=== PATIENT | female | born 1995 | race Caucasian/White ===

== ENCOUNTER 2017-04-14 08:01 | Observation (INO) | payer OTHER ==
--- NOTE | 2017-04-14 08:37 | ED PDOC ---
Upper Extremity Pain/Injury Time Seen by Provider: 04/14/17 08:12 Chief Complaint (Nursing): Upper Extremity Problem/Injury Additional Complaint(s): Patient is a 21 y/o F presenting with R arm swelling that began 2 days ago. She denies any trauma but reports that she works out lifting weights regularly. She reports some pain to the R clavicle, but is refusing pain medication. She denies weakness or numbness. Denies decreased ROM. She reports that she has been using a sling and elevating her arm without relief. PMD: Hx of R shoulder dislocation 5 years ago Past Medical History Vital Signs: Last Vital Signs Temp 98.5 F 04/14/17 08:07 Pulse 88 04/14/17 08:07 Resp 18 04/14/17 08:07 BP 113/54 L 04/14/17 08:07 Pulse Ox 98 04/14/17 08:11 - Medical History PMH: Gastritis - Family History Family History: States: Unknown Family Hx - Home Medications Home Medications: Ambulatory Orders Medication Instructions Recorded No Known Home Med 04/14/17 - Allergies Allergies/Adverse Reactions: Allergies Allergy/AdvReac Type Severity Reaction Status Date / Time No Known Allergies Allergy Verified 04/14/17 08:10 Review of Systems Constitutional: Negative for: Fever, Chills Cardiovascular: Negative for: Chest Pain, Palpitations Respiratory: Negative for: Cough, Shortness of Breath, SOB with Exertion, Wheezing Gastrointestinal: Negative for: Nausea, Vomiting, Abdominal Pain, Diarrhea, Constipation Genitourinary Female: Negative for: Dysuria Musculoskeletal: Positive for: Shoulder Pain, Arm Pain Skin: Negative for: Rash Neurological: Negative for: Weakness, Numbness, Altered Mental Status, Headache Physical Exam - Reviewed Nursing Documentation Reviewed: Yes Vital Signs Reviewed: Yes - Physical Exam Appears: Positive for: Well, Non-toxic Head Exam: Positive for: ATRAUMATIC, NORMAL INSPECTION Skin: Negative for: Normal Color (dependent edema and redness to R arm when allowed to hang) Eye Exam: Positive for: EOMI, Normal appearance, PERRL Neck: Positive for: Normal, Painless ROM Cardiovascular/Chest: Positive for: Regular Rate, Rhythm Respiratory: Positive for: Normal Breath Sounds. Negative for: Crackles, Rales , Rhonchi, Stridor, Wheezing Pulses-Radial (L): 2+ Pulses-Radial (R): 2+ Gastrointestinal/Abdominal: Positive for: Soft. Negative for: Tenderness, Mass , Distended Back: Positive for: Normal Inspection Extremity: Positive for: Normal ROM, Tenderness (pinpoint tenderness to R distal clavicle), Other (swelling to R upper and lower arm. Compartment soft. Distal pulses intact. ). Negative for: Deformity Neurologic/Psych: Positive for: Alert, organizational research consultant II-XII, Gait - Laboratory Results Result Diagrams: 04/14/17 08:46 04/14/17 08:46 - ECG O2 Sat by Pulse Oximetry: 98 Medical Decision Making Medical Decision Making: Will get duplex to r/o DVT. Will get xray of R shoulder and clavicle to r/o fracture or dislocation. Will give IVF and gets labs to r/o rhabdo. 10:24AM Labs WNL. U/s shows blood clot in proximal and mid R subclavian vein. Lovenox ordered. (Coags WNL) Spoke to radiologist and shoulder xray and clavicle xray negative for mass in chest (reports able to view entire chest and does not need dedicated film) Patient's PMD does not come to [place], so spoke to med contact center agent. Dr. Moreira. He is requesting CTA and admission to tele. 12:51PM CTA negative for PE. Patient resting comfortably Disposition - Clinical Impression Clinical Impression: DVT (deep venous thrombosis) - Disposition Disposition Time: 10:37 Condition: FAIR - Pt Status Changed To: Hospital Disposition Of: Inpatient - Admit Certification Admit to Inpatient:: After my assessment, the patient will require hospitalization for at least two midnights. This is because of the severity of symptoms shown, intensity of services needed, and/or the medical risk in this patient being treated as an outpatient.
[2017-04-14] MEDS: Sodium Chloride 0.9% 1,000 ML IV SCH ×3 (08:48→19:08)
[2017-04-14 08:55] LABS: BASO % 0.8 % (0.0-2.0); EOS # 0.1 K/uL (0.0-0.7); EOS % 2.9 % (0.0-4.0); HEMOGLOBIN 12.4 g/dL (12.0-16.0); LYMPH # 1.3 K/uL (1.0-4.3); LYMPH % 30.2 % (20.0-40.0); MEAN CELL VOLUME 91.2 fl (81.0-99.0); MEAN CORPUSCULAR HEMOGLOBIN 30.9 pg (27.0-31.0); MEAN CORPUSCULAR HGB CONC 33.8 g/dL (33.0-37.0); MEAN PLATELET VOLUME 7.3 fl (7.2-11.7); MONO # 0.5 K/uL (0.0-0.8); MONO % 12.1 % (0.0-10.0); NEUT # 2.4 K/uL (1.8-7.0); WHITE BLOOD COUNT 4.4 K/uL (4.8-10.8)
[2017-04-14 09:04] LABS: ALB/GLOB RATIO 1.6 (1.0-2.1); ALBUMIN 4.3 g/dL (3.5-5.0); ALT/SGPT 40 U/L (9-52); AST/SGOT 37 U/L (14-36); BLOOD UREA NITROGEN 9 mg/dl (7-17); GFR AFRICAN-AMERICAN > 60; GFR NON-AFRICAN AMERICAN > 60
--- NOTE | 2017-04-14 10:24 | US ---
PROCEDURE: Right Upper Extremity Venous Doppler HISTORY: R arm swelling COMPARISON: None available. TECHNIQUE: Right upper extremity deep veins, including the lower internal jugular, subclavian, axillary and brachial veins, were evaluated flow, compressibility and respiratory phasicity. FINDINGS: There is normal flow demonstrated in the internal jugular vein with compressibility. No intraluminal thrombus is noted. The right subclavian vein demonstrates absent flow in the proximal and mid aspect, with noncompressibility. There is flow seen in the distal aspect thigh in vein but it is still not compressible suggesting that there is still intraluminal thrombus. Examination of the axillary vein demonstrates no intraluminal thrombus. Normal compressibility is demonstrated. Normal respiratory variation and augmentation is demonstrated. Right brachials vein demonstrates no intraluminal thrombus. Normal compressibility is demonstrated. Normal respiratory variation and augmentation is demonstrated. IMPRESSION: There is deep venous thrombosis in the right subclavian vein. There is no deep venous thrombosis in any of the other right upper extremity deep veins. This finding was discussed by telephone with Dr. Cabral at 10:21 a.m. on 04/14/2017
[2017-04-14] MEDS ORDERED: Enoxaparin 80 mg Syringe SC STA (10:30)
[2017-04-14 11:20] LABS: PARTIAL THROMBOPLASTIN TIME 30.8 Seconds (25.6-37.1); PROTHROMBIN TIME 11.7 Seconds (9.8-13.1)
[2017-04-14] MEDS ORDERED: Iodixanol 320 MG/ML 100 ML BOTTLE IV ONE (11:24)
[2017-04-14] MEDS ORDERED: Sodium Chloride 0.9% 50 ML IV ONE (11:24)
--- NOTE | 2017-04-14 12:17 | RAD ---
PROCEDURE: Radiographs of the Right Shoulder HISTORY: R clavicle/shoulder pain after exercising COMPARISON: No prior. FINDINGS: BONES: Normal. No fracture. JOINTS: Normal. Glenohumeral and acromioclavicular joints preserved. No osteoarthritis. SOFT TISSUES: Normal. OTHER FINDINGS: None. IMPRESSION: Normal radiographs of the right shoulder.
--- NOTE | 2017-04-14 12:17 | RAD ---
PROCEDURE: Radiographs of the right clavicle. HISTORY: R clavicle/shoulder pain after exercising COMPARISON: None. FINDINGS: RIGHT CLAVICLE: No fracture or focal lesion. JOINTS: Right acromioclavicular and glenohumeral joints are grossly unremarkable. SOFT TISSUES: Grossly unremarkable. OTHER FINDINGS: None. IMPRESSION: Normal radiographs of the right clavicle.
--- NOTE | 2017-04-14 12:34 | CT ---
PROCEDURE: CT Chest with contrast (Pulmonary Angiogram) HISTORY: dvt, eval for PE COMPARISON: None available. TECHNIQUE: Axial computed tomography images were obtained of the chest in the pulmonary arterial phase of enhancement. Coronal and sagittal reformatted images were created and reviewed. Intravenous contrast dose: 99 cc Visipaque 320 Radiation dose: Total exam DLP = 322.89 mGy-cm. This CT exam was performed using one or more of the following dose reduction techniques: Automated exposure control, adjustment of the mA and/or kV according to patient size, and/or use of iterative reconstruction technique. FINDINGS: PULMONARY ARTERIES: Unremarkable. No pulmonary embolism. AORTA: No acute findings. No thoracic aortic aneurysm. LUNGS: Unremarkable. No nodule, mass or pulmonary consolidation. PLEURAL SPACES: Unremarkable. No effusion or pneuomothorax. HEART: Unremarkable. No cardiomegaly. No significant pericardial effusion. LYMPH NODES: No lymphadenopathy. BONES, CHEST WALL: Unremarkable. No fracture or destructive lesion OTHER FINDINGS: Unremarkable. IMPRESSION: Unremarkable CT pulmonary angiogram. No pulmonary embolus.
--- NOTE | 2017-04-14 15:22 | CARD ---
APPROVED REPORT EKG Measurement Heart [id number] <Conclusion> Normal sinus rhythm Normal ECG
[2017-04-14] MEDS ORDERED: DiphenhydrAMINE 12.5 mg/5 ml LIQ UD (5 ml) ONE (18:02)
--- NOTE | 2017-04-14 18:46 | CP.PCM.CON ---
History of Present Illness - History of Present Illness History of Present Illness: 21 year old female admitted with right subclavian vein DVT. The patient reports to swelling involving her right arm for about 2 days. This concerned her and she came to the ER. An ultrasound revealed right subclavian vein thrombus and she was started on therapeutic Lovenox. She denies immobility and notes she works out in the gym with weights. She denies trauma to the area but notes to a right clavical injury about 5 years ago which required a sling. She denies chest pain and shortness of breath. She was due to start control pills recently but denies taking them or other hormonal therapies. She denies family members with blood clots or sudden . Past medical history: None Past surgical history: None Family history: Denies hematologic and oncologic problems. Social history: Denies tobacco, drinks alcohol socially, denies illicit drug use. Allergies: NKA Review of systems: All remaining review of systems including HEENT, cardiovascular, respiratory, gastrointestinal, genitourinary, musculoskeletal, dermatologic, neurologic, and psychiatric are negative unless mentioned in the HPI. Past Patient History - Past Social History Smoking Status: Never Smoked - CARDIAC Hx Cardiac Disorders: No - PULMONARY Hx Respiratory Disorders: No - NEUROLOGICAL Hx Neurological Disorder: No - HEENT Hx HEENT Problems: No - RENAL Hx Chronic Kidney Disease: No - ENDOCRINE/METABOLIC Hx Endocrine Disorders: No - HEMATOLOGICAL/ONCOLOGICAL Hx Blood Disorders: No - INTEGUMENTARY Hx Dermatological Problems: No - MUSCULOSKELETAL/RHEUMATOLOGICAL Hx Musculoskeletal Disorders: No - GASTROINTESTINAL Hx Gastritis: Yes - GENITOURINARY/GYNECOLOGICAL Hx Genitourinary Disorders: No - PSYCHIATRIC Hx Psychophysiologic Disorder: No - SURGICAL HISTORY Hx Surgeries: No - ANESTHESIA Hx Anesthesia: No Meds Allergies/Adverse Reactions: Allergies Allergy/AdvReac Type Severity Reaction Status Date / Time No Known Allergies Allergy Verified 04/14/17 08:10 - Medications Medications: Current Medications Enoxaparin Sodium (Lovenox) 60 mg SC Q12 FARHAN PRN Reason: Protocol Sodium Chloride (Sodium Chloride 0.9%) 1,000 mls @ 80 mls/hr IV .[id number] Stop: 04/15/17 18:27 Physical Exam - Head Exam Head Exam: ATRAUMATIC - Eye Exam Eye Exam: Normal appearance - ENT Exam ENT Exam: Mucous Membranes Dry - Respiratory Exam Respiratory Exam: NORMAL BREATHING PATTERN - Cardiovascular Exam Cardiovascular Exam: +S1, +S2 - GI/Abdominal Exam GI & Abdominal Exam: Normal Bowel Sounds - Extremities Exam Additional comments: right forearm swelling - Neurological Exam Neurological exam: Oriented x3 - Psychiatric Exam Psychiatric exam: Normal Affect, Normal Mood - Skin Skin Exam: Warm Results - Vital Signs Recent Vital Signs: Last Vital Signs Temp 98.2 F 04/14/17 17:22 Pulse 74 04/14/17 17:22 Resp 20 04/14/17 17:22 BP 123/76 04/14/17 17:22 Pulse Ox 97 04/14/17 16:30 - Labs Result Diagrams: 04/15/17 06:30 04/15/17 06:30 Assessment & Plan (1) DVT (deep venous thrombosis) Assessment and Plan: 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 The patient prefers outpatient Pradaxa (150mg BID). Status: Acute (2) Leukopenia Assessment and Plan: mild benign Thank you for this interesting consult. Status: Acute
[2017-04-14 19:09] VITALS: O2SAT 99
[2017-04-14] MEDS: Enoxaparin 60 mg Syringe SC SCH (21:33)
[2017-04-15 07:10] LABS: HEMOGLOBIN 12.3 g/dL (12.0-16.0); MEAN CELL VOLUME 91.5 fl (81.0-99.0); MEAN CORPUSCULAR HEMOGLOBIN 30.5 pg (27.0-31.0); MEAN CORPUSCULAR HGB CONC 33.3 g/dL (33.0-37.0); RBC 4.05 Mil/uL (3.80-5.20); RED CELL DISTRIBUTION WIDTH 12.8 % (11.5-14.5); WHITE BLOOD COUNT 4.6 K/uL (4.8-10.8)
[2017-04-15 07:33] LABS: PARTIAL THROMBOPLASTIN TIME 30.3 Seconds (25.6-37.1); PROTHROMBIN TIME 11.2 Seconds (9.8-13.1)
[2017-04-15 07:47] LABS: BLOOD UREA NITROGEN 8 mg/dl (7-17); CALCIUM 8.7 mg/dL (8.4-10.2); GFR AFRICAN-AMERICAN > 60; GFR NON-AFRICAN AMERICAN > 60
[2017-04-15] MEDS: Sodium Chloride 0.9% 1,000 ML IV SCH (09:15)
[2017-04-15] MEDS: Enoxaparin 60 mg Syringe SC SCH (09:15)
--- NOTE | 2017-04-15 12:27 | CP.PCM.HP ---
History of Present Illness - History of Present Illness History of Present Illness: CC: R arm / R shoulder pain 21 y/o F, came to [facility], [place] to be evaluated for R arm pain,constant, aching , mild intensity 3:10 associated to swelling upper and lower arm for 2 days [facility] RN , Pt refused pain medication and still with no relief on arrival to ED. Pain radiated to R clavicle. Worsening symptoms: Hx of R shoulder dislocation 5 yrs ago, using splint. Aggravated factor: Movements/exercises, bending, twisting, lifting weights, unable to work out. Pt denied: Fever, chills, numbness, weakness, SOB, CP, palpitations, n/v/d, abdominal pain, sick contact. PMHx: R shoulder dislocation 5 yrs ago. EKG: Normal sinus rhythm. CXR: Normal. X Ray Clavicle: Normal. Upper Ext. U-S: DVT R Subclavian Veins. Lowe Ext. U-S: No DVT Present on Admission - Present on Admission Any Indicators Present on Admission: Yes History of DVT/PE: Yes Review of Systems - Constitutional Constitutional: Other (negative) - EENT Eyes: Other (negative) Ears: Other (negative) Nose/Mouth/Throat: Other (negative) - Cardiovascular Cardiovascular: Other (negative) - Respiratory Respiratory: Other (negative) - Gastrointestinal Gastrointestinal: Other (negative) - Genitourinary Genitourinary: Other (negative) - Musculoskeletal Musculoskeletal: Joint Swelling, Radiating Pain into Limb, Other - Integumentary Integumentary: Swelling (R arm) - Neurological Neurological: Other (negative) - Psychiatric Psychiatric: Other (negative) - Endocrine Endocrine: Other (negative) - Hematologic/Lymphatic Hematologic: Other (negative) Past Patient History - Past Social History Smoking Status: Never Smoked - CARDIAC Hx Cardiac Disorders: No - PULMONARY Hx Respiratory Disorders: No - NEUROLOGICAL Hx Neurological Disorder: No - HEENT Hx HEENT Problems: No - RENAL Hx Chronic Kidney Disease: No - ENDOCRINE/METABOLIC Hx Endocrine Disorders: No - HEMATOLOGICAL/ONCOLOGICAL Hx Blood Disorders: No - INTEGUMENTARY Hx Dermatological Problems: No - MUSCULOSKELETAL/RHEUMATOLOGICAL Hx Musculoskeletal Disorders: No - GASTROINTESTINAL Hx Gastritis: Yes - GENITOURINARY/GYNECOLOGICAL Hx Genitourinary Disorders: No - PSYCHIATRIC Hx Psychophysiologic Disorder: No - SURGICAL HISTORY Hx Surgeries: No - ANESTHESIA Hx Anesthesia: No Meds Home Medications: Home Medication List Medication Instructions Recorded Confirmed Type Dabigatran [Pradaxa] 75 mg PO BID #60 cap 04/15/17 Rx Allergies/Adverse Reactions: Allergies Allergy/AdvReac Type Severity Reaction Status Date / Time No Known Allergies Allergy Verified 04/14/17 08:10 Physical Exam - Constitutional Appears: No Acute Distress - Head Exam Head Exam: NORMAL INSPECTION - Eye Exam Eye Exam: PERRL - ENT Exam ENT Exam: Normal Oropharynx - Neck Exam Neck exam: Positive for: Normal Inspection - Respiratory Exam Respiratory Exam: NORMAL BREATHING PATTERN - Cardiovascular Exam Cardiovascular Exam: REGULAR RHYTHM - GI/Abdominal Exam GI & Abdominal Exam: Normal Bowel Sounds, Soft - Extremities Exam Extremities exam: Positive for: tenderness (R distal clavicle.) Additional comments: Swelling R arm - Back Exam Back exam: NORMAL INSPECTION - Neurological Exam Neurological exam: Alert, Oriented x3 Additional comments: No motor sensory deficit. - Psychiatric Exam Psychiatric exam: Normal Mood - Skin Skin Exam: Warm Results - Vital Signs Recent Vital Signs: Last Vital Signs Temp 98.1 F 04/15/17 12:00 Pulse 73 04/15/17 12:00 Resp 18 04/15/17 12:00 BP 108/75 04/15/17 12:00 Pulse Ox 99 04/15/17 12:00 reviewed J.P. - Labs Result Diagrams: 04/15/17 06:30 04/15/17 06:30 Labs: Laboratory Results - last 24 hr 04/15/17 04/15/17 04/15/17 06:30 06:30 06:30 WBC 4.6 L RBC 4.05 Hgb 12.3 Hct 37.0 MCV 91.5 MCH 30.5 MCHC 33.3 RDW 12.8 Plt Count 212 PT 11.2 INR 1.0 APTT 30.3 Sodium 139 Potassium 4.2 Chloride 108 H Carbon Dioxide 24 Anion Gap 11 BUN 8 Creatinine 0.6 L Est GFR ( Amer) > 60 Est GFR (Non-Af Amer) > 60 Random Glucose 89 Calcium 8.7 reviewed J.P. - EKG Data EKG comments: reviewed J.P. - Imaging and Cardiology Chest x-ray Status: Report reviewed by me (Gordo) Venous US Status: Report reviewed by me (Gordo) Assessment & Plan (1) Suspected deep vein thrombosis (DVT) Status: Acute Priority: High Comment: R Subclavian Vein - Assessment and Plan (Free Text) Plan: Pt was seen by Hematology outside solar sales consultant, recommended to be on light duty work, Pt improved and stable to be discharged, to continue with Pradaxa as out PT, as per Dermatology outside solar sales consultant recommendation and to follow up in his office in 2 weeks, also to f/u with PMD in a week. - Date & Time Date: 04/15/17
--- NOTE | 2017-04-15 13:31 | CP.PCM.PN ---
Subjective - Date & Time of Evaluation Date of Evaluation: 04/15/17 Time of Evaluation: 12:00 - Subjective Subjective: Arm swelling improved Objective - Vital Signs/Intake and Output Vital Signs (last 24 hours): Temp Pulse Resp BP Pulse Ox 98.1 F 73 18 108/75 99 04/15/17 12:00 04/15/17 12:00 04/15/17 12:00 04/15/17 12:00 04/15/17 12:00 - Medications Medications: Current Medications Acetaminophen (Tylenol 325mg Tab) 650 mg PO Q4 PRN PRN Reason: Pain, moderate (4-7) Last Admin: 04/14/17 23:27 Dose: 650 mg Dabigatran (Pradaxa) 75 mg PO BID FARHAN PRN Reason: Protocol Enoxaparin Sodium (Lovenox) 60 mg SC Q12 FARHAN PRN Reason: Protocol Last Admin: 04/15/17 09:15 Dose: 60 mg Sodium Chloride (Sodium Chloride 0.9%) 1,000 mls @ 80 mls/hr IV .[id number] [facility] Stop: 04/15/17 18:27 Last Admin: 04/15/17 09:15 Dose: 80 mls/hr - Labs Labs: 04/15/17 06:30 04/15/17 06:30 PT 11.2 Seconds (9.8-13.1) 04/15/17 06:30 INR 1.0 (0.9-1.2) 04/15/17 06:30 APTT 30.3 Seconds (25.6-37.1) 04/15/17 06:30 - Head Exam Head Exam: ATRAUMATIC - Eye Exam Eye Exam: Normal appearance - ENT Exam ENT Exam: Mucous Membranes Dry - Respiratory Exam Respiratory Exam: NORMAL BREATHING PATTERN - Cardiovascular Exam Cardiovascular Exam: +S1, +S2 - GI/Abdominal Exam GI & Abdominal Exam: Normal Bowel Sounds Assessment and Plan (1) DVT (deep venous thrombosis) Assessment & Plan: unprovoked inherited thrombophilia w/u sent on therapeutic anticoagulation outpatient Pradaxa 150mg BID x 3 months Status: Acute (2) Leukopenia Status: Acute
[2017-04-15 15:37] VITALS: BP 103/68; PULSE 77; RESP 20; TEMP 98.2
--- NOTE | 2017-04-15 15:49 | US ---
PROCEDURE: Bilateral lower extremity venous duplex Doppler. HISTORY: r/o dvt COMPARISON: None available. TECHNIQUE: Bilateral common femoral, superficial femoral, popliteal and posterior tibial veins were evaluated. Flow was assessed with color Doppler, compressibility, assessment of phasic flow and augmentation response. FINDINGS: COMMON FEMORAL VEIN: Right CFV: Unremarkable. Left CFV: Unremarkable. SUPERFICIAL FEMORAL VEIN: Right SFV: Unremarkable. Left SFV: Unremarkable. POPLITEAL VEIN: Right Popliteal: Unremarkable. Left Popliteal: Unremarkable. POSTERIOR TIBIAL VEIN: Right PTV: Unremarkable. Left PTV: Unremarkable. OTHER FINDINGS: None. IMPRESSION: No evidence of deep venous thrombosis.
[2017-04-18 05:06] LABS: B2 GLYCOPROTEIN I AB(IGA) <9 SAU (<=20); B2 GLYCOPROTEIN I AB(IGG) <9 SGU (<=20); B2 GLYCOPROTEIN I AB(IGM) <9 SMU (<=20)
[2017-04-18 05:48] LABS: CARDIOLIPIN AB (IGA) <11 APL (<=11); CARDIOLIPIN AB (IGG) <14 GPL (<=14); CARDIOLIPIN AB (IGM) <12 MPL (<=12); PHOSPHATIDYLSERINE AB IGA <20 U/mL (<20); PHOSPHATIDYLSERINE AB IGG <10 U/mL (<10); PHOSPHATIDYLSERINE AB IGM <25 U/mL (<25)
== END 2017-04-15 17:15 | disposition home or self-care (01) ==
LOC: H.ER 08:01 → H.ERHOLD 10:41 → INTOOBSV 10:41 → H.TEL 16:29
PROVIDERS: ADMIT Internal Medicine Pulmonary Disease; ATTEND Internal Medicine Pulmonary Disease
DX: I82.B11 Acute embolism and thrombosis of right subclavian vein (principal); D72.819 Decreased white blood cell count, unspecified; Z79.01 Long term (current) use of anticoagulants; Z86.718 Personal history of other venous thrombosis and embolism

== ENCOUNTER 2018-02-10 15:11 | Observation (INO) | payer OTHER ==
[2018-02-10 19:08] LABS: BASO % 0.5 % (0.0-2.0); EOS # 0.1 K/uL (0.0-0.7); EOS % 2.3 % (0.0-4.0); HEMOGLOBIN 13.3 g/dL (12.0-16.0); LYMPH # 2.1 K/uL (1.0-4.3); MEAN CELL VOLUME 90.3 fl (81.0-99.0); MEAN CORPUSCULAR HGB CONC 34.3 g/dL (33.0-37.0); MEAN PLATELET VOLUME 7.4 fl (7.2-11.7); MONO # 0.6 K/uL (0.0-0.8); MONO % 9.4 % (0.0-10.0); NEUT # 3.6 K/uL (1.8-7.0); NEUT % 55.8 % (50.0-75.0); NRBC % 0.1 % (0.0-0.0); RBC 4.29 Mil/uL (3.80-5.20); WHITE BLOOD COUNT 6.5 K/uL (4.8-10.8)
[2018-02-10 19:23] LABS: ALB/GLOB RATIO 1.2 (1.0-2.1); ALBUMIN 4.4 g/dL (3.5-5.0); ALT/SGPT 44 U/L (9-52); AST/SGOT 41 U/L (14-36); BLOOD UREA NITROGEN 12 mg/dl (7-17); CALCIUM 9.5 mg/dL (8.4-10.2); GFR AFRICAN-AMERICAN > 60; GFR NON-AFRICAN AMERICAN > 60
[2018-02-10 19:34] LABS: PROTHROMBIN TIME 10.7 Seconds (9.8-13.1)
[2018-02-10 19:35] LABS: PARTIAL THROMBOPLASTIN TIME 32.5 Seconds (25.6-37.1)
[2018-02-10] MEDS ORDERED: Enoxaparin 80 mg Syringe SC STA (20:56)
--- NOTE | 2018-02-10 20:59 | ED PDOC ---
Upper Extremity Pain/Injury Time Seen by Provider: 02/10/18 16:06 Chief Complaint (Nursing): Upper Extremity Problem/Injury Chief Complaint (Provider): Right shoulder discomfort, swelling of the right hand History Per: Patient History/Exam Limitations: no limitations Onset/Duration Of Symptoms: Days Current Symptoms Are (Timing): Still Present Additional Complaint(s): 22 yo female with history of DVT in the right subclavian in march presents with continued right shoulder discomfort. PT states she was on pradaxa until 2 months ago and was told DVT of the subclavian was gone. PT states she discontinued pradaxa due to insurance. PT cames today because of continued shoulder discomfort and intermittent swelling of the right arm. Past Medical History Reviewed: Historical Data, Nursing Documentation, Vital Signs Vital Signs: Last Vital Signs Temp 98.8 F 02/10/18 15:45 Pulse 78 02/10/18 15:45 Resp 20 02/10/18 15:45 BP 132/84 02/10/18 15:45 Pulse Ox 98 02/10/18 15:45 - Medical History PMH: Gastritis Denies: Chronic Kidney Disease Other PMH: DVT - Surgical History Surgical History: No Surg Hx - Family History Family History: States: Unknown Family Hx - Home Medications Home Medications: Ambulatory Orders Medication Instructions Recorded Dabigatran [Pradaxa] 75 mg PO BID #60 cap 04/15/17 - Allergies Allergies/Adverse Reactions: Allergies Allergy/AdvReac Type Severity Reaction Status Date / Time No Known Allergies Allergy Verified 04/14/17 08:10 Review of Systems ROS Statement: Except As Marked, All Systems Reviewed And Found Negative Constitutional: Negative for: Fever, Chills Musculoskeletal: Positive for: Other (Swelling right arm, discomfort right shoulder ) Physical Exam - Reviewed Nursing Documentation Reviewed: Yes Vital Signs Reviewed: Yes - Physical Exam Appears: Positive for: Well, Non-toxic, No Acute Distress Head Exam: Positive for: ATRAUMATIC, NORMAL INSPECTION, NORMOCEPHALIC Skin: Positive for: Normal Color, Warm, DRY Eye Exam: Positive for: Normal appearance ENT: Positive for: Normal ENT Inspection Neck: Positive for: Normal, Painless ROM Cardiovascular/Chest: Positive for: Regular Rate, Rhythm Respiratory: Positive for: Normal Breath Sounds. Negative for: Accessory Muscle Use, Respiratory Distress Back: Positive for: Normal Inspection Extremity: Positive for: Normal ROM, Swelling (Mild, right upper arm ) Neurologic/Psych: Positive for: Alert, Oriented - Laboratory Results Result Diagrams: 02/10/18 19:02 02/10/18 19:02 - ECG O2 Sat by Pulse Oximetry: 98 Medical Decision Making Medical Decision Making: Discussed with Dr. Chang. He would like Lovenox 1mg/kg. Case discussed with Dr. Najera for admission. Disposition - Clinical Impression Clinical Impression: Deep venous thrombosis - Patient ED Disposition Is Patient to be Admitted: Yes - Disposition Disposition Time: 21:03 Condition: STABLE
--- NOTE | 2018-02-10 21:19 | CP.PCM.HP ---
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 She discontinued Pradaxa 3months ago and noted that the right shoulder discomfort had worsened over the past week with some swelling of the upper right extremity,so she came to the ED. PMH: Subclavian Vein DVT dx 04/14/18; dislocated right shoulder 6 years ago; Gastritis PSH: denies SH: No illegal drug use; Never smoked; No Alcohol use; Live with family; works delivering dietary FH: States: No known family Hx Allergies: NKDA Medication: Reviewed Present on Admission - Present on Admission Any Indicators Present on Admission: No History of DVT/PE: No History of Uncontrolled Diabetes: No Urinary Catheter: No Decubitus Ulcer Present: No Review of Systems - Constitutional Constitutional: absent: Anorexia, Chills, Fever, Headache - EENT Eyes: Requires Corrective Lenses. absent: Itchy Eyes, Photophobia, Sees Flashes Ears: absent: Decreased Hearing, Ear Discharge, Tinnitus Nose/Mouth/Throat: absent: Epistaxis, Nasal Congestion, Sinus Pain, Sinus Pressure - Cardiovascular Cardiovascular: absent: Chest Pain, Dyspnea, Edema, Leg Edema - Respiratory Respiratory: absent: Cough, Dyspnea, Wheezing, Stridor - Gastrointestinal Gastrointestinal: absent: Constipation, Diarrhea, Nausea, Vomiting - Genitourinary Genitourinary: absent: Dysuria, Flank Pain, Hematuria, Urinary Frequency - Musculoskeletal Musculoskeletal: absent: Back Pain, Muscle Weakness, Myalgias - Integumentary Integumentary: absent: Pruritus, Rash, Skin Ulcer, Sores, Striae, Swelling - Neurological Neurological: absent: Confusion, Focal Weakness, Headaches, Weakness - Psychiatric Psychiatric: absent: Anxiety, Depression, Panic Attacks - Endocrine Endocrine: absent: Palpitations, Polydipsia, Polyphagia, Polyuria - Hematologic/Lymphatic Hematologic: absent: Easy Bleeding, Easy Bruising Past Patient History - Infectious Disease Hx of Infectious Diseases: None - Past Medical History & Family History Past Medical History?: Yes - Past Social History Smoking Status: Never Smoked Chewing Tobacco Use: No Cigar Use: No Drugs: Denies Home Situation {Lives}: With Family - CARDIAC Hx Cardiac Disorders: No - PULMONARY Hx Respiratory Disorders: No - NEUROLOGICAL Hx Neurological Disorder: No - HEENT Hx HEENT Problems: No - RENAL Hx Chronic Kidney Disease: No - ENDOCRINE/METABOLIC Hx Endocrine Disorders: No - HEMATOLOGICAL/ONCOLOGICAL Hx Blood Disorders: No Other/Comment: DVT of the Right subclavian - INTEGUMENTARY Hx Dermatological Problems: No - MUSCULOSKELETAL/RHEUMATOLOGICAL Hx Musculoskeletal Disorders: No - GASTROINTESTINAL Hx Gastritis: Yes - GENITOURINARY/GYNECOLOGICAL Hx Genitourinary Disorders: No - PSYCHIATRIC Hx Psychophysiologic Disorder: No Hx Substance Use: No - SURGICAL HISTORY Hx Surgeries: No - ANESTHESIA Hx Anesthesia: No Meds Allergies/Adverse Reactions: Allergies Allergy/AdvReac Type Severity Reaction Status Date / Time No Known Allergies Allergy Verified 04/14/17 08:10 Physical Exam - Head Exam Head Exam: ATRAUMATIC, NORMAL INSPECTION, NORMOCEPHALIC - Eye Exam Eye Exam: EOMI, Normal appearance, PERRL Pupil Exam: PERRL - ENT Exam ENT Exam: Mucous Membranes Moist, Normal Exam, Normal External Ear Exam - Neck Exam Neck exam: Positive for: Full Rom, Normal Inspection. Negative for: Lymphadenopathy, Tenderness - Respiratory Exam Respiratory Exam: absent: Chest Wall Tenderness, Rales, Rhonchi, Wheezes - Cardiovascular Exam Cardiovascular Exam: REGULAR RHYTHM, RRR, +S1, +S2. absent: Gallop, JVD - GI/Abdominal Exam GI & Abdominal Exam: Normal Bowel Sounds, Soft. absent: Mass, Organomegaly, Tenderness - Rectal Exam Rectal Exam: Deferred - Extremities Exam Extremities exam: Positive for: full ROM, normal inspection. Negative for: joint swelling, pedal edema, tenderness - Back Exam Back exam: NORMAL INSPECTION. absent: CVA tenderness (L), CVA tenderness (R) - Neurological Exam Neurological exam: Alert, CN II-XII Intact, Oriented x3, Reflexes Normal - Psychiatric Exam Psychiatric exam: Normal Affect, Normal Mood - Skin Skin Exam: Dry, Intact, Normal Color, Warm Results - Vital Signs Recent Vital Signs: Last Vital Signs Temp 98.8 F 02/10/18 15:45 Pulse 78 02/10/18 15:45 Resp 20 02/10/18 15:45 BP 132/84 02/10/18 15:45 Pulse Ox 98 02/10/18 21:04 - Labs Result Diagrams: 02/10/18 19:02 05/18/18 19:02 Labs: Laboratory Results - last 24 hr 02/10/18 02/10/18 02/10/18 19:02 19:02 19:02 WBC 6.5 RBC 4.29 Hgb 13.3 Hct 38.7 MCV 90.3 MCH 31.0 MCHC 34.3 RDW 13.0 Plt Count 251 MPV 7.4 Neut % (Auto) 55.8 Lymph % (Auto) 32.0 [place] % (Auto) 9.4 Eos % (Auto) 2.3 Baso % (Auto) 0.5 Neut # (Auto) 3.6 Lymph # (Auto) 2.1 [place] # (Auto) 0.6 Eos # (Auto) 0.1 Baso # (Auto) 0.0 PT 10.7 INR 1.0 APTT 32.5 Sodium 140 Potassium 3.9 Chloride 102 Carbon Dioxide 22 Anion Gap 20 BUN 12 Creatinine 0.5 L Est GFR ( Amer) > 60 Est GFR (Non-Af Amer) > 60 Random Glucose 89 Calcium 9.5 Total Bilirubin 0.4 AST 41 H ALT 44 Alkaline Phosphatase 64 Total Protein 8.2 Albumin 4.4 Globulin 3.8 Albumin/Globulin Ratio 1.2 Assessment & Plan - Assessment and Plan (Free Text) Assessment: #. 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 She discontinued Pradaxa 3months ago and noted that the right shoulder discomfort had worsened over the past week with some swelling of the upper right extremity, so she came to the ED. #. Right Internal jugular Vein DVT - Consult Dr Chang Heme/Onc - Thrombotic work up was done after the first DVT - Anticoagulant probably for life - Lovenox 70mg SubQ Q12H - Convert to Novel Oral anticoagulant if Possible. If not then start Coumadin #. DVT Prophylaxis: Patient on Lovenox #. Code Status: Full - Date & Time Date: 02/10/18 Time: 21:19
[2018-02-11] MEDS ORDERED: Enoxaparin 80 mg Syringe SC SCH (09:00)
[2018-02-11 12:04] VITALS: O2SAT 99
--- NOTE | 2018-02-11 15:03 | CP.PCM.CON ---
History of Present Illness - History of Present Illness History of Present Illness: 22 year old female with a history of right subclavian vein DVT s/p Pradaxa, presenting with right shoulder pain, found to have R IJ DVT. The patient is well known to me and had been on Pradaxa for a right subclavian DVT, Due to insurance issues she was unable to afford anticoagulation. 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 She is currently on lovenox and reports to feeling better. Past medical history: None Past surgical history: None Family history: Denies hematologic and oncologic problems. Social history: Denies tobacco, drinks alcohol socially, denies illicit drug use. Allergies: NKA Review of systems: All remaining review of systems including HEENT, cardiovascular, respiratory, gastrointestinal, genitourinary, musculoskeletal, dermatologic, neurologic, and psychiatric are negative unless mentioned in the HPI. Past Patient History - Infectious Disease Hx of Infectious Diseases: None - Past Medical History & Family History Past Medical History?: Yes - Past Social History Smoking Status: Never Smoked Chewing Tobacco Use: No Cigar Use: No Drugs: Denies Home Situation {Lives}: With Family - CARDIAC Hx Cardiac Disorders: No - PULMONARY Hx Respiratory Disorders: No - NEUROLOGICAL Hx Neurological Disorder: No - HEENT Hx HEENT Problems: No - RENAL Hx Chronic Kidney Disease: No - ENDOCRINE/METABOLIC Hx Endocrine Disorders: No - HEMATOLOGICAL/ONCOLOGICAL Hx Blood Disorders: No Other/Comment: DVT of the Right subclavian - INTEGUMENTARY Hx Dermatological Problems: No - MUSCULOSKELETAL/RHEUMATOLOGICAL Hx Musculoskeletal Disorders: No - GASTROINTESTINAL Hx Gastritis: Yes - GENITOURINARY/GYNECOLOGICAL Hx Genitourinary Disorders: No - PSYCHIATRIC Hx Psychophysiologic Disorder: No Hx Substance Use: No - SURGICAL HISTORY Hx Surgeries: No - ANESTHESIA Hx Anesthesia: No Meds Home Medications: Home Medication List Medication Instructions Recorded Confirmed Type Acetaminophen [Tylenol 325mg tab] 650 mg PO Q6 PRN tab 02/11/18 Rx Folic Acid 1 mg PO DAILY #1 tab 02/11/18 Rx Allergies/Adverse Reactions: Allergies Allergy/AdvReac Type Severity Reaction Status Date / Time No Known Allergies Allergy Verified 04/14/17 08:10 - Medications Medications: Current Medications Acetaminophen (Tylenol 325mg Tab) 650 mg PO Q6 PRN PRN Reason: For pain scale 1-7 Last Admin: 02/10/18 22:52 Dose: 650 mg Enoxaparin Sodium (Lovenox) 70 mg SC Q12 FARHAN PRN Reason: Protocol Last Admin: 02/11/18 08:36 Dose: 70 mg Physical Exam - Head Exam Head Exam: ATRAUMATIC - Eye Exam Eye Exam: Normal appearance - ENT Exam ENT Exam: Mucous Membranes Dry - Respiratory Exam Respiratory Exam: NORMAL BREATHING PATTERN - Cardiovascular Exam Cardiovascular Exam: +S1, +S2 - GI/Abdominal Exam GI & Abdominal Exam: Normal Bowel Sounds - Extremities Exam Extremities exam: Positive for: normal inspection - Neurological Exam Neurological exam: Oriented x3 - Psychiatric Exam Psychiatric exam: Normal Affect, Normal Mood - Skin Skin Exam: Warm Results - Vital Signs Recent Vital Signs: Last Vital Signs Temp 98.7 F 02/11/18 12:03 Pulse 67 02/11/18 12:03 Resp 18 02/11/18 12:03 BP 99/61 L 02/11/18 12:03 Pulse Ox 99 02/11/18 12:03 - Labs Result Diagrams: 02/10/18 19:02 02/10/18 19:02 Labs: Laboratory Results - last 24 hr 02/10/18 02/10/18 02/10/18 19:02 19:02 19:02 WBC 6.5 RBC 4.29 Hgb 13.3 Hct 38.7 MCV 90.3 MCH 31.0 MCHC 34.3 RDW 13.0 Plt Count 251 MPV 7.4 Neut % (Auto) 55.8 Lymph % (Auto) 32.0 [place] % (Auto) 9.4 Eos % (Auto) 2.3 Baso % (Auto) 0.5 Neut # (Auto) 3.6 Lymph # (Auto) 2.1 [place] # (Auto) 0.6 Eos # (Auto) 0.1 Baso # (Auto) 0.0 PT 10.7 INR 1.0 APTT 32.5 Sodium 140 Potassium 3.9 Chloride 102 Carbon Dioxide 22 Anion Gap 20 BUN 12 Creatinine 0.5 L Est GFR ( Amer) > 60 Est GFR (Non-Af Amer) > 60 Random Glucose 89 Calcium 9.5 Total Bilirubin 0.4 AST 41 H ALT 44 Alkaline Phosphatase 64 Total Protein 8.2 Albumin 4.4 Globulin 3.8 Albumin/Globulin Ratio 1.2 Assessment & Plan (1) DVT (deep venous thrombosis) Assessment and Plan: MTHFR mutation on therapeutic anticoagulation to restart Pradaxa 150mg BID; 1 month free confirmed by local pharmacy will need lifelong anticoagulation Status: Acute (2) MTHFR mutation Assessment and Plan: on folic acid and therapeutic anticoagulation Thank you for this interesting consult. Status: Chronic
[2018-02-11 15:34] VITALS: BP 107/69; PULSE 73; RESP 20; TEMP 98.3
[2018-02-11] MEDS ORDERED: Enoxaparin 80 mg Syringe SC STA (16:02)
--- NOTE | 2018-02-11 16:04 | CP.PCM.DIS ---
Provider - Provider Date of Admission: 02/10/18 20:50 Attending physician: Eleuterio Najera Consults: Hematology: Dr Chang Time Spent in preparation of Discharge (in minutes): 30 Diagnosis - Discharge Diagnosis (1) DVT (deep venous thrombosis) Status: Acute (2) MTHFR mutation Status: Chronic Hospital Course - Lab Results Lab Results: Most Recent Lab Values WBC 6.5 K/uL (4.8-10.8) 02/10/18 19:02 RBC 4.29 Mil/uL (3.80-5.20) 02/10/18 19:02 Hgb 13.3 g/dL (12.0-16.0) 02/10/18 19: Hct 38.7 % (34.0-47.0) 02/10/18 19:02 MCV 90.3 fl (81.0-99.0) 02/10/18 19: MCH 31.0 pg (27.0-31.0) 02/10/18 19: MCHC 34.3 g/dL (33.0-37.0) 02/10/18 19: RDW 13.0 % (11.5-14.5) 02/10/18 19: Plt Count 251 K/uL (130-400) 02/10/18 19:02 MPV 7.4 fl (7.2-11.7) 02/10/18 19:02 Neut % (Auto) 55.8 % (50.0-75.0) 02/10/18 19: Lymph % (Auto) 32.0 % (20.0-40.0) 02/10/18 19: [place] % (Auto) 9.4 % (0.0-10.0) 02/10/18 19:02 Eos % (Auto) 2.3 % (0.0-4.0) 02/10/18 19: Baso % (Auto) 0.5 % (0.0-2.0) 02/10/18 19:02 Neut # (Auto) 3.6 K/uL (1.8-7.0) 02/10/18 19:02 Lymph # (Auto) 2.1 K/uL (1.0-4.3) 02/10/18 19:02 [place] # (Auto) 0.6 K/uL (0.0-0.8) 02/10/18 19:02 Eos # (Auto) 0.1 K/uL (0.0-0.7) 02/10/18 19:02 Baso # (Auto) 0.0 K/uL (0.0-0.2) 02/10/18 19:02 PT 10.7 Seconds (9.8-13.1) 02/10/18 19: INR 1.0 (0.9-1.2) 02/10/18 19:02 APTT 32.5 Seconds (25.6-37.1) 02/10/18 19:02 Sodium 140 mmol/l (132-148) 02/10/18 19: Potassium 3.9 MMOL/L (3.6-5.0) 02/10/18 19: Chloride 102 mmol/L (98-107) 02/10/18 19: Carbon Dioxide 22 mmol/L (22-30) 02/10/18 19: Anion Gap 20 (10-20) 02/10/18 19:02 BUN 12 mg/dl (7-17) 02/10/18 19:02 Creatinine 0.5 mg/dl (0.7-1.2) L 02/10/18 19:02 Est GFR ( Amer) > 60 02/10/18 19:02 Est GFR (Non-Af Amer) > 60 02/10/18 19:02 Random Glucose 89 mg/dL (65-105) 02/10/18 19: Calcium 9.5 mg/dL (8.4-10.2) 02/10/18 19:02 Total Bilirubin 0.4 mg/dl (0.2-1.3) 02/10/18 19:02 AST 41 U/L (14-36) H 02/10/18 19:02 ALT 44 U/L (9-52) 02/10/18 19:02 Alkaline Phosphatase 64 U/L (38-126) 02/10/18 19:02 Total Protein 8.2 G/DL (6.3-8.2) 02/10/18 19: Albumin 4.4 g/dL (3.5-5.0) 02/10/18 19: Globulin 3.8 gm/dL (2.2-3.9) 02/10/18 19:02 Albumin/Globulin Ratio 1.2 (1.0-2.1) 02/10/18 19:02 - Hospital Course Hospital Course: 22 years old female with 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 Previous work up done by Dr Chang showed MTHFR DNA Mutation Factor variant. She was advised to continue Pradaxa however bec pt is uninsured and medication was expensive , she discontinued Pradaxa 3months ago and noted that the right shoulder discomfort had worsened over the past week with some swelling of the upper right extremity,so she came to the ED. At the ED , Doppler US revealed Right IJ DVT. #. Right Internal jugular Vein DVT -PT was started on Lovenox 70mg sq q12 - Consult Dr Chang Heme/Onc- rec to restart Pradaxa - Thrombotic work up was done after the first DVT - Anticoagulant probably for life Discharge Exam - Head Exam Head Exam: ATRAUMATIC, NORMAL INSPECTION, NORMOCEPHALIC - Eye Exam Eye Exam: EOMI, Normal appearance, PERRL Pupil Exam: NORMAL ACCOMODATION - ENT Exam ENT Exam: Mucous Membranes Moist, Normal External Ear Exam - Neck Exam Neck exam: Full Rom - Respiratory Exam Respiratory Exam: NORMAL BREATHING PATTERN. absent: Respiratory Distress - Cardiovascular Exam Cardiovascular Exam: REGULAR RHYTHM, +S1, +S2 - GI/Abdominal Exam GI & Abdominal Exam: Normal Bowel Sounds, Soft. absent: Tenderness - Extremities Exam Extremities exam: full ROM, normal capillary refill, pedal pulses present Additional comments: right arm swelling - Back Exam Back exam: FULL ROM. absent: CVA tenderness (L), CVA tenderness (R) - Neurological Exam Neurological exam: Alert, CN II-XII Intact, Normal Gait, Oriented x3, Reflexes Normal - Psychiatric Exam Psychiatric exam: Normal Affect, Normal Mood - Skin Skin Exam: Dry, Normal Color, Warm Discharge Plan - Discharge Medications Prescriptions: Folic Acid 1 mg PO DAILY #1 tab - Follow Up Plan Condition: GOOD Disposition: HOME/ ROUTINE Additional Instructions: ff up with Dr Chang in 1 wk
--- NOTE | 2018-02-13 09:39 | US ---
PROCEDURE: Right upper extremity venous sonography HISTORY: Right arm swelling COMPARISON: None TECHNIQUE: Real-time ultrasound scan of the veins with color flow, spectral waveform analysis and compression FINDINGS: Thrombus identified in the internal jugular vein. This is partially occluded. More distally, right subclavian vein, axillary vein, cephalic basilic (2) and brachial veins are patent. Unremarkable right radial vein as visualized. IMPRESSION: Focal thrombus in the right internal jugular vein. No additional abnormalities identified right upper extremity venous system.
== END 2018-02-11 16:43 | disposition home or self-care (01) ==
LOC: H.ER 15:11 → H.ERHOLD 20:50 → INTOOBSV 20:50 → H.TEL 22:19
PROVIDERS: ADMIT Internal Medicine; ATTEND Internal Medicine
DX: I82.C11 Acute embolism and thrombosis of right internal jugular vein (principal); Z86.718 Personal history of other venous thrombosis and embolism; E72.12 Methylenetetrahydrofolate reductase deficiency; K29.70 Gastritis, unspecified, without bleeding
CPT/HCPCS: 80053; 81025; 85025; 85610; 85730; 93971; 96372; 99285; G0378; J1650

== ENCOUNTER 2018-03-22 07:17 | Emergency (ER) | payer OTHER ==
[2018-03-22 07:32] VITALS: BMI 24.2
--- NOTE | 2018-03-22 08:47 | ED PDOC ---
HPI: Chest Pain Time Seen by Provider: 03/22/18 08:00 Chief Complaint (Nursing): Chest Pain Chief Complaint (Provider): Chest Pain History Per: Patient History/Exam Limitations: no limitations Onset/Duration Of Symptoms: Days (x1 ) Current Symptoms Are (Timing): Still Present Associated Symptoms: denies: Nausea, Dyspnea Exacerbating Factors: Deep Breathing Additional Complaint(s): Deb Zelaya is a 22 y/o female, with past medical history of blood clots, who presents to the ED complaining of left sided chest pain onset for x1 day. Patient states pain is constant, does not radiate and worsens with deep breaths. Patient reports x2 weeks ago she had cough which has improved since. Patient states in the past US revealed blood clots, she was admitted last month on January for it and is currently taking Pradaxa. She denies fever, chills, shortness of breath, congestion, injuries, leg swelling or pain. No further medical complaints. PMD: Reinaldo Chang Past Medical History Reviewed: Historical Data, Nursing Documentation, Vital Signs Vital Signs: Last Vital Signs Temp 97.9 F 03/22/18 07:38 Pulse 72 03/22/18 07:38 Resp 18 03/22/18 07:38 BP 119/71 03/22/18 07:38 Pulse Ox 100 03/22/18 09:23 - Medical History PMH: Gastritis Denies: HIV, Chronic Kidney Disease - Surgical History Surgical History: No Surg Hx - Family History Family History: States: Unknown Family Hx - Social History Current smoker - smoking cessation education provided: No Alcohol: Social Drugs: Denies - Home Medications Home Medications: Ambulatory Orders Medication Instructions Recorded Dabigatran [Pradaxa] 75 mg PO BID #60 cap 04/15/17 Acetaminophen [Tylenol 325mg tab] 650 mg PO Q6 PRN tab 02/11/18 Folic Acid 1 mg PO DAILY #1 tab 02/11/18 - Allergies Allergies/Adverse Reactions: Allergies Allergy/AdvReac Type Severity Reaction Status Date / Time No Known Allergies Allergy Verified 04/14/17 08:10 Review of Systems ROS Statement: Except As Marked, All Systems Reviewed And Found Negative Constitutional: Negative for: Fever, Chills, Other (injury) ENT: Negative for: Nose Congestion Cardiovascular: Positive for: Chest Pain (Left sided) Respiratory: Positive for: Cough (not productive). Negative for: Shortness of Breath Musculoskeletal: Negative for: Other (Leg or calf swelling) Skin: Positive for: Rash (red ring on right thigh) Physical Exam - Reviewed Nursing Documentation Reviewed: Yes Vital Signs Reviewed: Yes - Physical Exam Appears: Positive for: Non-toxic, No Acute Distress Head Exam: Positive for: ATRAUMATIC, NORMOCEPHALIC Skin: Positive for: Normal Color, Warm, Dry Eye Exam: Positive for: EOMI, Normal appearance, PERRL Neck: Positive for: Normal, Painless ROM, Supple Cardiovascular/Chest: Positive for: Regular Rate, Rhythm. Negative for: Chest Non Tender (tenderness to palpation), Murmur Respiratory: Positive for: Normal Breath Sounds (clear to auscultation). Negative for: Respiratory Distress Gastrointestinal/Abdominal: Positive for: Normal Exam, Soft. Negative for: Tenderness Back: Positive for: Normal Inspection. Negative for: L CVA Tenderness, R CVA Tenderness Extremity: Positive for: Normal ROM (upper and lower extremities). Negative for : Pedal Edema, Deformity, Swelling Neurologic/Psych: Positive for: Alert, Oriented. Negative for: Motor/Sensory Deficits - Laboratory Results Result Diagrams: 03/22/18 08:55 03/22/18 08:55 - ECG O2 Sat by Pulse Oximetry: 100 (RA) Pulse Ox Interpretation: Normal - Radiology X-Ray: Read By Radiologist X-Ray Interpretation: No Acute Disease - Progress Re-evaluation Time: 10:08 Condition: Re-examined, Improved Medical Decision Making Medical Decision Making: Time: 08:41 Initial Impression: Chest Pain Initial Plan: --EKG --CMP --EDNURTX --CBC with Differential --D Dimer --PTT --Prothrombin Time --CXR - Chest 2 views PA/LAT 09:14 CXR FINDINGS: LUNGS: No active pulmonary disease. PLEURA: No significant pleural effusion identified. No pneumothorax apparent. CARDIOVASCULAR: Normal. OSSEOUS STRUCTURES: Slight rightward convexity of the thoracolumbar spine segment suggested VISUALIZED UPPER ABDOMEN: Normal. OTHER FINDINGS: None. IMPRESSION: No active disease. Scribe Attestation: Documented by Dandy Mckenna, acting as a scribe for Viridiana Gómez MD Provider Scribe Attestation: All medical record entries made by the Scribe were at my direction and personally dictated by me. I have reviewed the chart and agree that the record accurately reflects my personal performance of the history, physical exam, medical decision making, and the department course for this patient. I have also personally directed, reviewed, and agree with the discharge instructions and disposition. Disposition - Clinical Impression Clinical Impression: Chest wall pain - Patient ED Disposition Is Patient to be Admitted: No Doctor Will See Patient In The: Office Counseled Patient/Family Regarding: Diagnosis, Need For Followup - Disposition Referrals: Rick Chang MD [Staff Provider] - Reinaldo Chang MD [Staff Provider] - Disposition: Routine/Home Disposition Time: 09:45 Condition: IMPROVED Additional Instructions: Take regular Tylenol (2-3 tablets) every 6 hours as needed for pain. Instructions: Costochondritis (DC), Chest Pain That Is Not Caused by the Heart (DC) Forms: [employer] (Fijian) - POA Present On Arrival: None
[2018-03-22 09:07] LABS: BASO % 0.6 % (0.0-2.0); EOS # 0.1 K/uL (0.0-0.7); EOS % 2.6 % (0.0-4.0); HEMOGLOBIN 12.8 g/dL (12.0-16.0); LYMPH # 1.5 K/uL (1.0-4.3); LYMPH % 30.4 % (20.0-40.0); MEAN CELL VOLUME 90.6 fl (81.0-99.0); MEAN CORPUSCULAR HEMOGLOBIN 30.2 pg (27.0-31.0); MEAN CORPUSCULAR HGB CONC 33.3 g/dL (33.0-37.0); MEAN PLATELET VOLUME 7.4 fl (7.2-11.7); MONO # 0.6 K/uL (0.0-0.8); MONO % 12.3 % (0.0-10.0); NEUT # 2.6 K/uL (1.8-7.0); NEUT % 54.1 % (50.0-75.0); NRBC % 0.1 % (0.0-0.0); RBC 4.23 Mil/uL (3.80-5.20); RED CELL DISTRIBUTION WIDTH 13.6 % (11.5-14.5); WHITE BLOOD COUNT 4.9 K/uL (4.8-10.8)
[2018-03-22 09:16] LABS: PARTIAL THROMBOPLASTIN TIME 42.1 Seconds (25.6-37.1); PROTHROMBIN TIME 11.6 Seconds (9.8-13.1)
--- NOTE | 2018-03-22 09:16 | RAD ---
HISTORY: sharp left pleuritic pain COMPARISON: No prior. TECHNIQUE: Chest PA and lateral FINDINGS: LUNGS: No active pulmonary disease. PLEURA: No significant pleural effusion identified. No pneumothorax apparent. CARDIOVASCULAR: Normal. OSSEOUS STRUCTURES: Slight rightward convexity of the thoracolumbar spine segment suggested VISUALIZED UPPER ABDOMEN: Normal. OTHER FINDINGS: None. IMPRESSION: No active disease.
[2018-03-22 09:20] LABS: ALB/GLOB RATIO 1.3 (1.0-2.1); ALBUMIN 4.4 g/dL (3.5-5.0); ALT/SGPT 43 U/L (9-52); AST/SGOT 39 U/L (14-36); BLOOD UREA NITROGEN 11 mg/dl (7-17); CALCIUM 9.1 mg/dL (8.4-10.2); GFR AFRICAN-AMERICAN > 60; GFR NON-AFRICAN AMERICAN > 60
[2018-03-22 13:19] VITALS: BP 124/70; PULSE 73; RESP 16; TEMP 98; O2SAT 99
--- NOTE | 2018-03-23 09:37 | CARD ---
APPROVED REPORT EKG Measurement Heart [id number] <Conclusion> Normal sinus rhythm Normal ECG
== END 2018-03-22 10:50 | disposition home or self-care (01) ==
LOC: H.ER 07:17
DX: R07.9 Chest pain, unspecified (principal); Z79.01 Long term (current) use of anticoagulants

== ENCOUNTER 2018-06-14 19:04 | Emergency (ER) | payer OTHER ==
[2018-06-14 19:04] VITALS: BMI 24.2
[2018-06-14 19:20] VITALS: BP 152/95; PULSE 83; RESP 16; TEMP 98.4; O2SAT 98
--- NOTE | 2018-06-14 20:11 | ED PDOC ---
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 Patient describes pain more as discomfort and pressure like. Patient reports discomfort would come intermittently and began radiating to the low back today thus prompting today's visit. Patient states discomfort is worse when lying on the her left side. Patient additionally reports of feeling more distended when she eats in the last three days. Denies nausea, vomiting, diarrhea, constipation , taking medications for pain, dysuria, frequency, hematuria, vaginal bleeding, vaginal discharge and fever. 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 - Surgical History Surgical History: No Surg Hx - Family History Family History: States: No Known Family Hx - Social History Current smoker - smoking cessation education provided: No - Home Medications Home Medications: Ambulatory Orders Medication Instructions Recorded Dabigatran [Pradaxa] 75 mg PO BID #60 cap 04/15/17 Acetaminophen [Tylenol 325mg tab] 650 mg PO Q6 PRN tab 02/11/18 Folic Acid 1 mg PO DAILY #1 tab 02/11/18 Acetaminophen [Tylenol Extra 1,000 mg PO Q6 PRN #100 tablet 06/14/18 Strength] - Allergies Allergies/Adverse Reactions: Allergies Allergy/AdvReac Type Severity Reaction Status Date / Time No Known Allergies Allergy Verified 06/14/18 19:20 Review of Systems ROS Statement: Except As Marked, All Systems Reviewed And Found Negative (as per HPI) Gastrointestinal: Positive for: Abdominal Pain (LEFT LOWER). Negative for: Nausea, Vomiting, Diarrhea, Constipation Genitourinary Female: Negative for: Dysuria, Frequency, Hematuria, Vaginal Discharge, Vaginal Bleeding Musculoskeletal: Positive for: Back Pain (LOW) Physical Exam - Reviewed Nursing Documentation Reviewed: Yes Vital Signs Reviewed: Yes - Physical Exam Appears: Positive for: Well, No Acute Distress Gastrointestinal/Abdominal: Positive for: Tenderness (To palpation of the left lower quadrant and left pelvic). Negative for: Mass, Guarding, Rebound Back: Positive for: Normal Inspection. Negative for: L CVA Tenderness, R CVA Tenderness - ECG O2 Sat by Pulse Oximetry: 98 (RA) Pulse Ox Interpretation: Normal Medical Decision Making Medical Decision Making: Time: 1956 Impression: Pelvic Pain Differentials include but not limited to ovarian cysts, mass, torsion and abdominal strain Plan: -- ED Urine -- ED Urine Dipstick -- Chlamydia/GC RNA, TNA -- Transvaginal US -- UDip results demonstrated to UTI. Time: 2226 US RESULTS FINDINGS: Uterus/cervix: The endometrial stripe is thickened measuring 1.3 cm. No myometrial mass. Trace fluid in the cervix. Right ovary: Unremarkable. No mass. Normal blood flow. Left ovary: There is a 1.9 x 1.7 x 2.1 cm simple cyst in the left ovary. Normal blood flow. Free fluid: No free fluid. IMPRESSION: LEFT ovarian cyst. Thank you for allowing us to participate in the care of your patient. Dictated and Authenticated by: Tennille Akins MD 06/14/2018 10:27 PM Eastern Time ([place] & [place]) Scribe Attestation: Documented by Dinora Grayson acting as a scribe for Brenda Anaya MD. Provider Scribe Attestation: All medical record entries made by the Scribe were at my direction and personally dictated by me. I have reviewed the chart and agree that the record accurately reflects my personal performance of the history, physical exam, medical decision making, and the department course for this patient. I have also personally directed, reviewed, and agree with the discharge instructions and disposition. Disposition - Clinical Impression Clinical Impression: Ovarian cyst - Disposition [facility] (FOLLOW UP WITH YOUR SOCIAL MEDIA DIRECTOR OR [facility] IN A WEEK FOR REEVALUATION) Disposition: Routine/Home Disposition Time: 22:50 Condition: STABLE Prescriptions: Acetaminophen [Tylenol Extra Strength] 1,000 mg PO Q6 PRN #100 tablet PRN Reason: FEVER OR PAIN Instructions: Ovarian Cyst (DC) Forms: [facility] ED School/Work Excuse
--- NOTE | 2018-06-15 08:59 | US ---
Date of service: 06/14/2018 HISTORY: LEFT pelvic pain r/o ovarian mass COMPARISON: None available. TECHNIQUE: Transvaginal FINDINGS: UTERUS: Measures 7.5 x 3.1 x 4.6 cm. Normal in size and appearance. No fibroid or other mass lesion seen. ENDOMETRIUM: Measures 13 mm in diameter. Unremarkable. CERVIX: No cervical abnormality identified. RIGHT OVARY: Measures 3.2 x 1.6 x 2.6 cm. No solid mass. Normal flow. LEFT OVARY: Measures cm. No solid mass. Normal flow. Physiologic cyst 17 x 19 x 21 mm FREE FLUID: No significant free fluid noted. OTHER FINDINGS: None. IMPRESSION: Unremarkable pelvic ultrasound. The preliminary findings for this examination were reported by [facility] at 10:27 p.m. on 06/14/2018. There is concurrence of this report with the preliminary findings.
== END 2018-06-14 23:02 | disposition home or self-care (01) ==
LOC: H.ER 19:04
DX: N83.202 Unspecified ovarian cyst, left side (principal); Z86.718 Personal history of other venous thrombosis and embolism; Z79.01 Long term (current) use of anticoagulants